=== PATIENT | female | born 1935 | race Caucasian/White ===

== ENCOUNTER → 2018-05-26 | Outpatient (CLI) | payer OTHER ==
[~2018-05-26] MED LIST: ANALGESIC325 MG PO; CRANBERRY 12,61 EACH PO; DARVOCET-N 1001 EACH PO; ESTRADIOL0.5 MG PO; FOLIC ACID 40400 MCG PO; KRILL OIL 3001 EACH PO; LEVOXYL50 MCG PO; NASONEX17 GM NS; NORVASC5 MG PO; OMEPRAZOLE 20 M20 MG PO; URECHOLINE 25 M25 M1 GT; VAGIFEM25 MCG VG; VIBRAMYCIN 100100 MG PO; VITAMIN B-12500 MCG PO; VITAMIN D3400 UNIT PO
== END ==
LOC: M.LAB 08:46
DX: N39.0 Urinary tract infection, site not specified (principal); E03.9 Hypothyroidism, unspecified